=== PATIENT | female | born 1930 | race Caucasian/White ===

== ENCOUNTER 2017-03-23 08:24 | Emergency (ER) | payer MEDICARE, BC ==
[2017-03-23 08:57] VITALS: BP 173/55
--- NOTE | 2017-03-23 08:57 | EDM.PDOC ---
ED HPI GENERAL MEDICAL PROBLEM - General Chief Complaint: Back Pain or Injury Stated Complaint: BACK ISSUES UNABLE TO WALK Time Seen by Provider: 03/23/17 08:56 - History of Present Illness INITIAL COMMENTS - FREE TEXT/NARRATIVE: 87-year-old female presents to the emergency room with left hip and pelvis pain. This started 2 or 3 days ago after the patient fell she fell on some hard dirt she fell forward after getting hit by a tailgate of her pickup and apparently landed on her side. Since then she's developed discomfort in difficulty walking she can walk but it is uncomfortable. She's been using one or 2 tramadol a day for the discomfort with some improvement. She has not tried any ibuprofen or Tylenol. Patient denies any other injuries or any other complaints at this time. Left Hip Pain Score (Numeric/FACES): 7 - Related Data Allergies Allergy/AdvReac Type Severity Reaction Status Date / Time hydrocodone Allergy Vomiting Verified 03/23/17 09:28 pentapiperium methylsulfate Allergy Cannot Uncoded 03/23/17 09:28 Remember Home Meds: Home Meds Aspirin 325 mg PO DAILY 05/03/15 [History] Atenolol 50 mg PO BID 05/03/15 [History] Fosinopril [Monopril] 20 mg PO BID 05/03/15 [History] Hydrochlorothiazide 25 mg PO DAILY 05/03/15 [History] Isosorbide Mononitrate [Imdur] 60 mg PO DAILY 05/03/15 [History] Levothyroxine [Synthroid] 50 mg PO DAILY 05/03/15 [History] Rosuvastatin [Crestor] 10 mg PO DAILY 05/03/15 [History] amLODIPine [Norvasc] 5 mg PO DAILY 05/03/15 [History] metFORMIN [Glucophage] 500 mg PO BID 05/03/15 [History] traMADol [Ultram] 50 mg PO DAILY 05/03/15 [History] Past Medical History - Past Surgical History Other Cardiovascular Surgeries/Procedures: Bypass Social & Family History - Tobacco Use Smoking Status *Q: Never Smoker - Recreational Drug Use Recreational Drug Use: No ED ROS GENERAL - Review of Systems Review Of Systems: See Below Constitutional: Reports: No Symptoms HEENT: Reports: No Symptoms Respiratory: Reports: No Symptoms Cardiovascular: Reports: No Symptoms GI/Abdominal: Reports: No Symptoms : Reports: No Symptoms Musculoskeletal: Reports: Back Pain Neurological: Reports: No Symptoms ED EXAM,LOWER BACK PAIN/INJURY - Physical Exam Exam: See Below Exam Limited By: No Limitations General Appearance: Alert, No Apparent Distress Head: Atraumatic, Normocephalic Neck: Normal Inspection, Supple, Non-Tender, Full Range of Motion. No: Lymphadenopathy (L), Lymphadenopathy (R) Respiratory/Chest: No Respiratory Distress, Lungs Clear, Normal Breath Sounds Cardiovascular: Regular Rate, Rhythm, No Edema, No Murmur GI/Abdominal: Normal Bowel Sounds, Soft, Non-Tender Extremities: Normal Inspection, No Pedal Edema, Other (Patient has discomfort around her left superior iliac crest low back and hip internal rotation is quite uncomfortable external rotation is more tolerable) Neurological: No Motor/Sensory Deficits Course - Vital Signs Last Recorded V/S: Last Vital Signs Temp 36.3 C 03/23/17 08:54 Pulse 66 03/23/17 08:54 Resp 18 03/23/17 08:54 BP 173/55 H 03/23/17 08:54 Pulse Ox 98 03/23/17 08:54 - Orders/Labs/Meds Orders: Active Orders 24 hr Category Date Time Status Femur Min 2V Lt [CR] Stat Exams 03/23/17 09:10 Taken Lumbar Spine 2 or 3V [CR] Stat Exams 03/23/17 09:15 Taken Pelvis 1V or 2V [CR] Stat Exams 03/23/17 09:10 Taken Meds: Medications Discontinued Medications Generic Name Dose Route Start Last Admin Trade Name Bryson PRN Reason Stop Dose Admin Acetaminophen 650 mg 03/23/17 10:35 03/23/17 10:42 Tylenol PO 03/23/17 10:36 650 mg NOW ONE Administration - Re-Assessments/Exams Free Text/Narrative Re-Assessment/Exam: 03/23/17 10:06 X-ray examination of the lumbar spine pelvis left femur is negative for acute fracture dislocation she's 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 Prior surgical change noted in the L-spine and vascular clips in the femur. We'll try the patient with Tylenol and see how she does with this 03/23/17 10:56 Patient just got her Tylenol she thinks should be okay walking around with her walker at home. The plan is the patient will use her tramadol up to 3 or 4 times a day every 6 hours as needed. We will start her on Tylenol 650 mg 4 times a day. Departure - Departure Time of Disposition: 10:57 Disposition: Home, Self-Care 01 Clinical Impression: Pelvic contusion, Left hip pain - Discharge Information Referrals: Jean Juárez MD [Primary Care Provider] - Forms: ED Department Discharge Additional Instructions: Return to the emergency room with any questions problems or worsening symptoms. Follow-up with your regular physician at the end of this next week. He has tramadol at home use this 3 or 4 times a day every 6 hours as needed. To help with your pain control take Tylenol 650 mg every 6 hours 4 times daily until this is better. Use your walker to assist in balance and stability walking. - My Orders Last 24 Hours: My Active Orders 03/23/17 09:10 Femur Min 2V Lt [CR] Stat Pelvis 1V or 2V [CR] Stat 03/23/17 09:15 Lumbar Spine 2 or 3V [CR] Stat - Assessment/Plan Last 24 Hours: My Active Orders 03/23/17 09:10 Femur Min 2V Lt [CR] Stat Pelvis 1V or 2V [CR] Stat 03/23/17 09:15 Lumbar Spine 2 or 3V [CR] Stat
[2017-03-23] MEDS ORDERED: Acetaminophen Soln 650 MG/20.3 ML UD Cup PO ONE (10:06)
[2017-03-23] MEDS ORDERED: Acetaminophen 325 MG Tab PO ONE (10:35)
--- NOTE | 2017-03-24 08:56 | CR ---
Left femur: AP and lateral views of the left femur were obtained. Comparison: No previous study. Bony structures are osteopenic. Vascular calcification is seen. Surgical clips are seen within the medial thigh. No fracture or other bony abnormality is identified. Impression: 1. Incidental findings. Nothing acute is appreciated on two-view left femur study. Diagnostic code #2
--- NOTE | 2017-03-24 08:56 | CR ---
Lumbar spine: AP and lateral views of the lumbar spine were obtained. Slight compression deformities are seen within T12, L1 and L2. Disc space narrowing is noted at L5-S1. Scattered endplate osteophytes are seen. No abnormal subluxation is seen. Pedicles are intact. Sacroiliac joints are within normal limits. Bony structures are osteopenic. Vascular calcification is noted. Impression: 1. Mild compression deformities as noted above. Age of these are indeterminate but have occurred in the interim from prior MRI lumbar spine study of 04/19/10. Further aging of these findings would be helpful by repeat MRI if clinically needed. 2. Mild degenerative change. No abnormal subluxation is seen. Diagnostic code #3
--- NOTE | 2017-03-25 12:38 | CR ---
Pelvis: AP view of the pelvis was obtained. Comparison: No previous pelvis exam. Mild joint space narrowing is seen superiorly within right hip. Joint space within the left hip is preserved. Sacroiliac joints are within normal limits. Minimal degenerative change is partially seen within the lumbar spine. Bony structures are osteopenic. Vascular calcification is noted. No acute fracture or other bony abnormality is identified. Impression: 1. Incidental findings as described above. Diagnostic code #2
== END 2017-03-23 12:05 | disposition home or self-care (01) ==
LOC: JD.ED 08:24
DX: S70.02XA Contusion of left hip, initial encounter (principal); S30.0XXA Contusion of lower back and pelvis, initial encounter; Z95.1 Presence of aortocoronary bypass graft; Z79.899 Other long term (current) drug therapy; Z79.82 Long term (current) use of aspirin; Z88.5 Allergy status to narcotic agent; Z88.8 Allergy status to other drugs, medicaments and biological substances; W18.09XA Striking against other object with subsequent fall, initial encounter
CPT/HCPCS: 72100; 72170; 73552; 99283; A9270